=== PATIENT | male | born 1995 ===

== ENCOUNTER 2016-10-02 01:37 | Emergency (ER) | payer SELFPAY ==
--- NOTE | 2016-10-02 01:44 | EDM.PDOC ---
ED HPI GENERAL MEDICAL PROBLEM - General Stated Complaint: LOWER RIGHT ABDOMINAL PAIN Time Seen by Provider: 10/02/16 01:40 - History of Present Illness INITIAL COMMENTS - FREE TEXT/NARRATIVE: HISTORY AND PHYSICAL: History of present illness: Patient's 20-year-old white male that since her right lower quadrant abdominal pain times one day he states this has gotten worse tonight it's been somewhat intermittent but no associated vomiting diarrhea urinary symptoms he's had no trauma no fever no chills he concern about possible appendicitis Review of systems: As per history of present illness and below otherwise all systems reviewed and negative. Past medical history: As per history of present illness and as reviewed below otherwise noncontributory. Surgical history: As per history of present illness and as reviewed below otherwise noncontributory. Social history: No reported history of drug or alcohol abuse. Family history: As per history of present illness and as reviewed below otherwise noncontributory. Physical exam: HEENT: Atraumatic, normocephalic, pupils reactive, negative for conjunctival pallor or scleral icterus, mucous membranes moist, throat clear, neck supple, nontender, trachea midline. Lungs: Clear to auscultation, breath sounds equal bilaterally, chest nontender. Heart: S1S2, regular, negative for clicks, rubs, or JVD. Abdomen: Soft, nondistended, mild tenderness in right lower quadrant to deep palpation this is not well localized there is no rebound no guarding. Negative for masses or hepatosplenomegaly. Negative for costovertebral tenderness. Pelvis: Stable nontender. Genitourinary: Deferred. Rectal: Deferred. Extremities: Atraumatic, negative for cords or calf pain. Neurovascular unremarkable. Neuro: Awake, alert, oriented. Cranial nerves II through XII unremarkable. Cerebellum unremarkable. Motor and sensory unremarkable throughout. Exam nonfocal. Diagnostics: CBC CMP UA CT abdomen and pelvis Therapeutics: None Impression: #1 right-sided abdominal pain Definitive disposition and diagnosis as appropriate pending reevaluation and review of above. ED ROS GENERAL - Review of Systems Review Of Systems: ROS reveals no pertinent complaints other than HPI. ED EXAM, GENERAL - Physical Exam Exam: See Below (See dictation) Departure - Departure Time of Disposition: 01:43 Disposition: Home, Self-Care 01 Condition: good Clinical Impression: Abdominal pain Additional Instructions: The following information is given to patients seen in the emergency department who are being discharged to home. This information is to outline your options for follow-up care. We provide all patients seen in our emergency department with a follow-up referral. The need for follow-up, as well as the timing and circumstances, are variable depending upon the specifics of your emergency department visit. If you don't have a primary care physician on staff, we will provide you with a referral. We always advise you to contact your personal physician following an emergency department visit to inform them of the circumstance of the visit and for follow-up with them and/or the need for any referrals to a consulting specialist. The emergency department will also refer you to a specialist when appropriate. This referral assures that you have the opportunity for followup care with a specialist. All of these measure are taken in an effort to provide you with optimal care, which includes your followup. Under all circumstances we always encourage you to contact your private physician who remains a resource for coordinating your care. When calling for followup care, please make the office aware that this follow-up is from your recent emergency room visit. If for any reason you are refused follow-up, please contact the [facility] emergency department at and asked to speak to the emergency department charge nurse. Follow up primary medical doctor one to 2 days return as needed as discussed
[2016-10-02 02:25] LABS: CHLORIDE,CL 105 mmol/L (98-110); SODIUM,NA 139 mmol/L (136-146)
[2016-10-02 03:39] VITALS: BP 133/70
--- NOTE | 2016-10-02 15:29 | CT ---
EXAM DATE: 10/02/16 PATIENT'S AGE: 20 Patient: YOSELIN ABEL Facility: [place], [place] Site . Site : 1995 Study: CT Abdomen/Pelvis WO CONT [id number]/30/2017 2:14:55 AM Ordering Physician: Issac Uribe Final Report: INDICATION: Right lower quadrant abdominal pain TECHNIQUE: CT abdomen and pelvis without IV contrast. Coronal and sagittal reformats were obtained. COMPARISON: None FINDINGS: Lower chest: Unremarkable. Liver: Unremarkable. Spleen: Unremarkable. Pancreas: Unremarkable. Gallbladder and bile ducts: Unremarkable. Kidneys: Unremarkable. No kidney or ureteral stones and no hydronephrosis seen. Adrenal glands: Unremarkable. GI tract: Large amount of stool is present throughout the colon which may be due to chronic constipation. The appendix is 8 mm in diameter and best seen on image 74. Vascular: Unremarkable. Lymph nodes: Unremarkable. Miscellaneous: Unremarkable. No pneumoperitoneum is seen. No significant ascites is noted. Pelvic Organs: Unremarkable. Bones: Unremarkable for age. IMPRESSION: 1. Large amount of stool is present throughout the colon which may be due to chronic constipation. 2. Mild enlargement of the appendix is noted with no secondary inflammatory changes seen. Clinical correlation and followup recommended to distinguish between a normal ectatic variant or early stage appendicitis. Dictated by Nuno Green MD @ 10/02/2016 2:23:57 AM Dictated by: Nuno Green MD @ 10/02/2016 02:24:02 (Electronic Signature) Report Signed by Proxy and Original Signed Document filed in the Medical Record. [facility] SYSTEM[facility]onzalez
== END 2016-10-02 03:39 | disposition home or self-care (01) ==
LOC: MW.ED 01:37
DX: R10.31 Right lower quadrant pain (principal)
CPT/HCPCS: 36415; 74176; 74176-26; 80053; 81001; 85025; 99282; 99284-25